=== PATIENT | female | born 1955 | race Caucasian/White ===

== ENCOUNTER → 2018-05-24 14:15 | Outpatient (REF) | payer OTHER, SELFPAY ==
[2018-05-24 15:46] LABS: Cholesterol 181 mg/dL (50-200); HDL Cholesterol 73 mg/dL (40-60); Triglyceride 55 mg/dL (30-150)
[2018-05-24 15:50] LABS: COMMENT (LAB VIEW ONLY) 73.22 mg/dL; Microalb ug/mg Crea 15.2 ug/mg Cr
[2018-05-24 15:58] LABS: LDL CHOLESTEROL 96 mg/dL (<100)
== END ==
LOC: LBN 14:15
PROVIDERS: PCP Family Medicine; Visit Provider Family Medicine
DX: E11.9 Type 2 diabetes mellitus without complications (principal)
CPT/HCPCS: 80061; 83721; 82043; 82570

== ENCOUNTER → 2018-05-26 10:43 | Outpatient (REF) | payer OTHER, SELFPAY ==
--- NOTE | 2018-05-26 10:00 | PAPFT_PTH ---
PATIENT: Sharon Llamas LOC: [facility] U#:[id number] AGE/SX: 70/F ROOM: RE05/26/[address]: Roslyn Badillo MD : 1955 BED: DIS: SPEC #: [id number] RECD: 05/26/18 13:04 STATUS: JUAN REAure #: [id number] MERVAT: 05/26/18 10:[address]: Roslyn Badillo DEPT: [facility] Cytology RECD BY: Yas Irvin Tissues: 1 - CX/ENDOCX FOR PAP SMEARS Procedures: PAP THIN PREP/UVM Screening HPV DNA PROBE Comments: [id number]
== END ==
LOC: LBN 10:43
PROVIDERS: PCP Family Medicine; Visit Provider Family Medicine
DX: Z12.4 Encounter for screening for malignant neoplasm of cervix (principal); Z11.51 Encounter for screening for human papillomavirus (HPV)
CPT/HCPCS: 88142; 87624

== ENCOUNTER 2018-07-24 17:31 | Emergency (ER) | payer OTHER, SELFPAY ==
[2018-07-24] VITALS (34 sets, daily range): BP systolic 117–179; BP diastolic 60–75; PULSE 72–92; RESP 11–27; TEMP 37.7; O2SAT 92–100
[2018-07-24] MEDS: Normal Saline 1,000 ML 1000 ML IV ×2 (17:45→19:15)
[2018-07-24] MEDS: Ondansetron 4 MG/2 ML VIAL IVP (18:00)
[2018-07-24 18:03] LABS: Abs Immature Grans 0.01 k/cumm (0.0-0.09); Absolute Basophil Count 0.02 k/cumm (0.0-0.2); Absolute Eosinophil Count 0.13 k/cumm (0.0-0.7); Absolute Lymphocyte Count 1.54 k/cumm (1.2-3.4); Absolute Monocyte Count 0.73 k/cumm (0.11-0.7); Absolute Neutrophil Count 6.52 k/cumm (1.2-6.7); Basophils % 0.2; Eosinophils % 1.5; HCT 40.7 % (36.0-46.0); HGB 13.6 g/dL (12.0-15.5); Immature Grans % 0.1; Lymphocytes % 17.2; Mean Corp. HGB Concentration 33.4 g/dL (32.0-36.0); Mean Corpuscular Hemoglobin 31.6 pg (27.0-33.0); Mean Corpuscular Volume 94.4 fL (80-95); Mean Platelet Volume 10.4 fL (8.0-11.0); Monocytes % 8.2; Neutrophils % 72.8; Platelet Count 272 x1000/uL (130-400); RBC 4.31 m/cumm (4.00-5.20); RBC Distribution Width 12.5 % (11.7-14.6); White Blood Cell Count 8.95 k/cumm (4.4-10.8)
[2018-07-24 18:18] LABS: ALT 24 U/L (12-78); AST 24 U/L (15-37); Albumin 3.8 g/dL (3.4-5.0); Alkaline Phosphatase 83 U/L (46-116); Anion Gap 11.6 mmol/L (3-11); BUN 10 mg/dL (7-18); Bilirubin, Total 0.2 mg/dL (0.2-1.0); CO2 28.4 mmol/L (21.0-32.0); CREATININE 0.76 mg/dL (0.55-1.02); Calcium 9.6 mg/dL (8.5-10.1); Chloride 103 mmol/L (98-107); Glucose 75 mg/dL (70-100); Sodium 143 mmol/L (136-145); Total Protein 7.6 g/dL (6.4-8.2); Troponin I 0.02 ng/mL (0.00-0.06)
[2018-07-24 18:24] LABS: Potassium 2.7 mmol/L (3.5-5.1)
--- NOTE | 2018-07-24 19:05 | ED.GENADUL_ITS ---
Discharge Plan Disposition Patient Disposition: HOME Condition: Good Discharge Details Chief Complaint: Diabetes Clinical Impression: Acute dehydration, Hypoglycemia, Acute hypokalemia Primary Care Provider: Roslyn Badillo ED Provider: Mikey Baker Home Meds and New Rx's Prescriptions: New potassium chloride 20 mEq tablet,ER particles/crystals 20 meq PO DAILY Qty: 7 RF: 0 ondansetron [Zofran ODT] 4 MG tablet,disintegrating 4 mg PO Q6H 1 Days Qty: 4 RF: 0 No Action aspirin 81 MG tablet,delayed release (DR/EC) 1 tab PO DAILY RF: 0 CALCIUM 600 + D TABLET 1 EACH tablet 1 tab PO RF: 0 blood sugar diagnostic [Blood Glucose Test] 1 EACH strip 1 ea Miscellaneous AC & HS Qty: 400 RF: 4 lisinopril [Zestril] 10 MG tablet 1 tab PO DAILY Qty: 90 RF: 4 insulin aspart U-100 [Novolog PenFill U-100 Insulin] 100 UNIT/1 ML cartridge 1 unit SQ as directed Qty: 6 RF: 6 pravastatin 40 MG tablet 40 mg PO DAILY Qty: 90 RF: 4 fluconazole 150 MG tablet 150 mg PO ONCE Qty: 4 RF: 2 ibuprofen 600 MG tablet 600 mg PO TID PRNRF: 0 Discharge Instructions Instructions: Dehydration (ED), Hypokalemia (ED) Additional Instructions: Please check your insulin levels every hour. If you notice any low sugar levels please start eating sugary foods. Please take the Zofran and potassium as directed and needed. Please drink 8-10 cups of water per day. If you notice any worsening of your symptoms, or any new symptoms such as vomiting, diarrhea, fever, chills, shortness of breath, chest pain, numbness, weakness, or fainting , please return immediately to the emergency department for reevaluation. Please follow up with your primary care provider as soon as possible for reassessment and reevaluation. As always, it was a pleasure participating in your medical care today. Referrals: Roslyn Badillo MD [Primary Care Provider] - Medical Decision Making This is a pleasant 63-year-old female with a past medical history of type 1 diabetes on an insulin pump who presents for nausea, 2 episodes of vomiting, dizziness and near syncope. Patient has a history of running low on her sugar and having episodes of vomiting and near syncope in the past. Today though he was complicated with being unable to bring up her blood sugars secondary to the vomiting. On initial exam the patient demonstrated no focal neurologic deficits, she did appear to have dry mucous membranes. No other significant abnormalities. Patient was given Zofran and her nausea completely improved, she is able to tolerate p.o. well after this. She was rehydrated with a liter of normal saline and felt extremely better after this. Laboratory workup demonstrates no significant CBC abnormalities, however her chemistries did demonstrate a potassium of 2.7. Patient was given oral and IV potassium as well as oral magnesium. Troponin was negative, EKG was benign. Patient is feeling much better and is actively asking to go home. I feel this is very reasonable. Patient's symptoms may have been a combination of mild hypoglycemia with associated vomiting secondary to either something she ate or secondary to her hypoglycemia. At this point with the patient feeling much better, a benign workup aside for the hypokalemia which has been corrected, and no other significant abnormalities I feel she can be safely discharged home with close follow-up. We discussed red flags which to return, the importance of switching her insulin monitor to a more accurate measurement device, and utilizing regular Accu-Chek strips in the meantime until she can get a new insulin pump associated monitoring device. We will give the patient a prescription for potassium for home use. Discussed red flags which to return, the importance of close PCP follow-up. I have extensively reviewed the treatment plan and discharge instructions with the patient and their family. I have addressed all patient concerns at this time. The patient and family was made aware of what symptoms to monitor for that would warrant a return to the emergency department. Discussed the plan with the patient and family, they demonstrate verbal understanding and agreement with our assessment and plan at this time. EKG 18: 09 Rate 81, intervals normal, normal sinus rhythm. No ST depression or elevation. No Q waves. Inverted T wave noted in aVF, and lead III, small Q wave in lead III. Nonspecific ST abnormality secondary to artifact noted in lead 3. These findings are present on prior EKG from 03/01. HPI General Date/Time Provider Initiated Documentation: 07/24/18 17:32 . HPI Narrative: This is a 63-year-old female with a past medical history of high cholesterol, type 1 diabetes on an insulin pump, and hypertension with a past surgical history of C-sections, who presents today for evaluation of nausea, 1-2 episodes of vomiting, and near syncope. The patient states that she and her went to stay because 89 at [place] where she had a salad, shortly thereafter she got slightly dizzy, had 1-2 episodes of vomiting, and then had a near syncopal episode. The patient states that she recalls the event, but her thinks she might of passed out very briefly. She did not fall or hit her head. She had no trauma. After this event she went and checked her glucose and she was less than 70. She tried taking food to bring her glucose up but because of the nausea and vomiting she was unable to keep it down and so she came here for further evaluation. Patient denies any chest pain, headache, neck pain or shoulder pain. She denies any vision changes, pleuritic chest pain, or other complaints. She has had episodes like this in the past, they are usually secondary to low blood sugar. She states she often runs very low. Patient denies any other insulin medications, she only utilizes her pump. She does note that she used a new patch for checking her glucose, she is noted that this is been running slightly often compared to normal and compared to her own fingersticks. She denies any other complaints at this time. She denies any other modifying factors Related Data Home Medications Medication Instructions Recorded Confirmed Calcium 600 + D Tablet 1 tab PO 02/03/13 03/07/14 aspirin 1 tab PO DAILY tab-cap 02/03/13 07/24/18 ibuprofen 600 mg PO TID PRN 03/07/14 07/24/18 blood sugar diagnostic [Blood #400 strip 05/25/17 Glucose Test] insulin aspart U-100 [Novolog] 1 unit SQ as directed #6 box 04/11/18 07/24/18 lisinopril [Zestril] 1 tab PO DAILY #90 tab-cap 04/11/18 07/24/18 fluconazole 150 mg PO ONCE #4 tab-cap 05/26/18 07/24/18 pravastatin 40 mg PO DAILY #90 tab-cap 05/26/18 07/24/18 ondansetron [Zofran Odt] 4 mg PO Q6H 1 Days #4 tab 07/24/18 potassium chloride 20 meq PO DAILY #7 tab 07/24/18 Previous Rx's Medication Instructions Recorded insulin aspart U-100 [Novolog] 1 unit SQ as directed #6 box 04/11/18 lisinopril [Zestril] 1 tab PO DAILY #90 tab-cap 04/11/18 fluconazole 150 mg PO ONCE #4 tab-cap 05/26/18 pravastatin 40 mg PO DAILY #90 tab-cap 05/26/18 ondansetron [Zofran Odt] 4 mg PO Q6H 1 Days #4 tab 07/24/18 potassium chloride 20 meq PO DAILY #7 tab 07/24/18 Allergies Allergy/AdvReac Type Severity Reaction Status Date / Time Sulfa (Sulfonamide Allergy Mild HIVES Unverified 07/24/18 17:58 Antibiotics) General Stated Complaint: Diabetes WICHO: 3 Review of Systems Review of Systems All systems reviewed & are unremarkable except as noted in HPI and below PFSH Family History Mother No problems noted. Father Neoplasm Sister No problems noted. Brother No problems noted. Grandfather No problems noted. Grandmother Neoplasm Sister Neoplasm Brother Diabetes Son No problems noted. Daughter No problems noted. Daughter No problems noted. Other Heart disease Medical History Diabetes mellitus Hypertension Social History Smoking/Tobacco Use Status: Never Surgical History section Ligation of fallopian tube Exam Narrative Exam Narrative: 1.Const: Well-nourished, Well-developed, appearing stated age 2.Eyes: PERRL, no conjunctival injection, and symmetrical lids. 3.ENT: Atraumatic external nose and ears. Dry MM. Neck: Symmetric, trachea midline, No thyromegaly. Cerebellar function testing is normal. The patient demonstrates a normal hints exam with no findings concerning for a central event. No vertical nystagmus. The head impulse test is negative for any significant central abnormality. Normal test of skew. No suggestion of a central cerebellar event. 4.CVS: +S1/S2, No murmurs or gallops. Peripheral pulses 2+ and equal in all extremities. Brisk capillary refill in all extremities. 5.RESP: Unlabored respiratory effort. Clear to auscultation bilaterally. No wheezes rales or rhonchi 6.GI: Soft, Nontender/Nondistended, No hepatosplenomegaly. No guarding or rebound. 7.MSK: Normocephalic/Atraumatic, Extremities w/o deformity or ttp No cyanosis or clubbing, Normal movement of all extremities 8.Skin: Warm, Dry. No rashes or lesions. 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 Sensation grossly intact, no focal neurologic deficits. All 6 cardinal planes of vision are fully intact. No evidence of rotatory or vertical nystagmus. The patient demonstrated a normal xvzhal-[id number], good dexterity. There was no evidence of dysdiadochokinesia. Patient was able to ambulate without difficulty. There was no wide-based gait. Romberg, and rgus-sm-mjid are both normal on testing. Sensation was intact bilaterally as well as muscle strength bilaterally for all extremities. Patient was able to verbalize butter cup with no slurring, or miss pronunciation. 10.Psych: (AAO) x3. Appropriate mood and affect Course Vital Signs Temperature 37.7 C H 07/24/18 17:46 Pulse 79 07/24/18 17:46 Respiratory Rate 17 07/24/18 17:46 Blood Pressure 179/60 H 07/24/18 17:46 Pulse Oximetry 100 07/24/18 17:46 Temperature 37.7 C H 07/24/18 17:46 Temperature Source Skin 07/24/18 17:46 Pulse 79 07/24/18 17:46 Respiratory Rate 17 07/24/18 17:46 Respiratory Effort Non-Labored 07/24/18 17:46 Blood Pressure 179/60 H 07/24/18 17:46 Blood Pressure Position Supine 07/24/18 17:46 Pulse Oximetry 100 07/24/18 17:46 Oxygen Delivery Method Room Air 07/24/18 17:46 Oxygen Flow Rate 0 07/24/18 17:46 Pain Level 0 07/24/18 17:46 Lab/Test Results Lab/Test Results: Laboratory Tests Range/Units 07/24/18 07/24/18 17:45 17:45 WBC (4.4-10.8) k/cumm 8.95 RBC (4.00-5.20) m/cumm 4.31 Hgb (12.0-15.5) g/dL 13.6 Hct (36.0-46.0) % 40.7 MCV (80-95) fL 94.4 MCH (27.0-33.0) pg 31.6 MCHC (32.0-36.0) g/dL 33.4 RDW (11.7-14.6) % 12.5 Plt Count (130-400) x1000/uL 272 MPV (8.0-11.0) fL 10.4 Immature Gran % 0.1 Neutrophils % 72.8 Lymphocytes % 17.2 Monocytes % 8.2 Eosinophils % 1.5 Basophils % 0.2 Absolute Neutrophils (1.2-6.7) k/cumm 6.52 Absolute Lymphocytes (1.2-3.4) k/cumm 1.54 Absolute Monocytes (0.11-0.7) k/cumm 0.73 H Absolute Eosinophils (0.0-0.7) k/cumm 0.13 Absolute Basophils (0.0-0.2) k/cumm 0.02 Sodium (136-145) mmol/L 143 Potassium (3.5-5.1) mmol/L 2.7 L* Chloride (98-107) mmol/L 103 Carbon Dioxide (21.0-32.0) mmol/L 28.4 Anion Gap (3-11) mmol/L 11.6 H BUN (7-18) mg/dL 10 Creatinine (0.55-1.02) mg/dL 0.76 Estimated GFR/1.73 m2 (mL/min/1.73m2) >= 60.00 Glucose (70-100) mg/dL 75 Calcium (8.5-10.1) mg/dL 9.6 Total Bilirubin (0.2-1.0) mg/dL 0.2 AST (15-37) U/L 24 ALT (12-78) U/L 24 Alkaline Phosphatase (46-116) U/L 83 Troponin I (0.00-0.06) ng/mL 0.02 Total Protein (6.4-8.2) g/dL 7.6 Albumin (3.4-5.0) g/dL 3.8
[2018-07-24] MEDS: Magnesium Oxide 400 MG TAB 800 MG PO (19:13)
[2018-07-24] MEDS: POTASSIUM CHLORIDE 20 MEQ/100 ML BAG 50 MEQ IVPB (19:14)
[2018-07-24] MEDS: Potassium Chloride 20 MEQ TABCR 40 MEQ PO (19:14)
== END 2018-07-24 21:22 | disposition home or self-care (01) ==
PROVIDERS: Emergency Provider Student in an Organized Health Care Education/Training Program; PCP Family Medicine
DX: E11.649 Type 2 diabetes mellitus with hypoglycemia without coma (principal); E86.0 Dehydration; E87.6 Hypokalemia; Z79.4 Long term (current) use of insulin
CPT/HCPCS: 36415; 36416; 80053; 82962; 93005; 96361; 96365; 96375; 84484; 85025; 93010; J3480

== ENCOUNTER 2018-08-01 08:20 | Outpatient (CLI) | payer OTHER, SELFPAY ==
[2018-08-01 12:46] LABS: ALT 25 U/L (12-78); AST 22 U/L (15-37); Albumin 3.6 g/dL (3.4-5.0); Alkaline Phosphatase 81 U/L (46-116); Anion Gap 7.3 mmol/L (3-11); BUN 12 mg/dL (7-18); Bilirubin, Total 0.4 mg/dL (0.2-1.0); CO2 29.7 mmol/L (21.0-32.0); CREATININE 0.78 mg/dL (0.55-1.02); Calcium 9.6 mg/dL (8.5-10.1); Chloride 102 mmol/L (98-107); Glucose 149 mg/dL (70-100); Magnesium 1.9 mg/dL (1.8-2.4); Potassium 4.3 mmol/L (3.5-5.1); Sodium 139 mmol/L (136-145)
== END 2018-08-01 08:40 ==
PROVIDERS: PCP Family Medicine; Visit Provider Family Medicine
DX: E11.9 Type 2 diabetes mellitus without complications (principal); Z79.4 Long term (current) use of insulin; I10 Essential (primary) hypertension; E83.42 Hypomagnesemia
CPT/HCPCS: 36415; 80053; 83735

== ENCOUNTER 2018-08-10 14:59 | Outpatient (CLI) | payer OTHER, SELFPAY ==
[2018-08-10 16:28] LABS: Bilirubin Negative (Negative); Blood Negative (Negative); Clarity Clear; Glucose Negative (Negative); Ketones Negative (Negative); Leukocyte Esterase Negative (Negative); Nitrite Negative (Negative); Urobilinogen 0.2 EU/dL (Up TO 0.2); pH 7.5 (5-8)
[2018-08-10 19:25] LABS: ALT 39 U/L (12-78); AST 82 U/L (15-37); Albumin 3.7 g/dL (3.4-5.0); Alkaline Phosphatase 84 U/L (46-116); Anion Gap 7.4 mmol/L (3-11); BUN 16 mg/dL (7-18); Bilirubin, Total 0.3 mg/dL (0.2-1.0); CO2 30.6 mmol/L (21.0-32.0); CREATININE 0.82 mg/dL (0.55-1.02); Calcium 9.6 mg/dL (8.5-10.1); Chloride 102 mmol/L (98-107); Glucose 155 mg/dL (70-100); Potassium 4.7 mmol/L (3.5-5.1); Sodium 140 mmol/L (136-145); Total Protein 6.9 g/dL (6.4-8.2)
[2018-08-10 22:00] LABS: Hemoglobin A1C 6.8 % (4.5-6.2)
== END 2018-08-10 15:19 ==
PROVIDERS: PCP Family Medicine; Visit Provider Family Medicine
DX: E11.9 Type 2 diabetes mellitus without complications (principal)
CPT/HCPCS: 80053; 81003; 83036

== ENCOUNTER 2018-09-06 13:06 | Outpatient (REF) | payer OTHER, SELFPAY ==
[2018-09-06 13:44] LABS: ALT 23 U/L (12-78); AST 21 U/L (15-37); Albumin 3.9 g/dL (3.4-5.0); Alkaline Phosphatase 80 U/L (46-116); Bilirubin, Direct 0.11 mg/dL (0.00-0.20); Bilirubin, Total 0.4 mg/dL (0.2-1.0); Total Protein 7.1 g/dL (6.4-8.2)
== END 2018-09-06 13:26 ==
LOC: LBN 13:06
PROVIDERS: PCP Family Medicine; Visit Provider Family Medicine
DX: R74.0 Nonspecific elevation of levels of transaminase and lactic acid dehydrogenase [LDH] (principal)
CPT/HCPCS: 80076

== ENCOUNTER 2019-02-14 15:04 | Outpatient (REF) | payer OTHER, SELFPAY ==
[2019-02-14 16:24] LABS: ALT 29 U/L (12-78); AST 22 U/L (15-37); Albumin 4.4 g/dL (3.4-5.0); Alkaline Phosphatase 83 U/L (46-116); Anion Gap 7.7 mmol/L (3-11); BUN 12 mg/dL (7-18); Bilirubin, Total 0.4 mg/dL (0.2-1.0); CO2 30.3 mmol/L (21.0-32.0); CREATININE 0.79 mg/dL (0.55-1.02); Calcium 10.1 mg/dL (8.5-10.1); Chloride 101 mmol/L (98-107); Glucose 150 mg/dL (70-100); Potassium 4.5 mmol/L (3.5-5.1); Sodium 139 mmol/L (136-145); Total Protein 7.5 g/dL (6.4-8.2)
== END 2019-02-14 15:24 ==
LOC: LBN 15:04
PROVIDERS: PCP Family Medicine; Visit Provider Family Medicine
DX: E10.9 Type 1 diabetes mellitus without complications (principal)
CPT/HCPCS: 80053

== ENCOUNTER 2019-08-02 00:59 | Outpatient (CLI) | payer OTHER, SELFPAY ==
--- NOTE | 2019-08-02 12:17 | DI.MAMMO_ITS ---
EXAM: MG MAMMO SCREENING CLINICAL HISTORY: Screening, Z12.31 TECHNIQUE: Bilateral full field digital CC and MLO mammographic images were obtained with 3D tomosyn thesis and utilizing computer aided detection (CAD). COMPARISON: Available for comparison. FINDINGS: Masses/Architectural Distortion: There is an area of asymmetric breast tissue in the outer left breas t seen on the craniocaudad view. This area is more prominent compared to the prior examinations. Fu rther evaluation with spot compression view and a left breast ultrasound are requested. Microcalcifications: No suspicious pleomorphic-type are seen. Skin Thickening/Nipple Retraction: None. IMPRESSION: 1. Additional views of the left breast as described above. BI-RADS Cat 0 - Assessment Incomplete: Need additional imaging evaluation Breast Density - Category B - Scattered areas of fibroglandular density A negative radiographic report should not delay biopsy if a dominant or clinically suspicious mass is present. Up to ten percent of cancers are not identified on mammography. A negative report may reinforce clinical impression. Adenosis and dense breasts may obscure an underlying neoplasm. False positive reports average 6 to 10%.
== END 2019-08-02 01:19 ==
PROVIDERS: PCP Family Medicine; Visit Provider Family Medicine
DX: R92.8 Other abnormal and inconclusive findings on diagnostic imaging of breast
CPT/HCPCS: 77063; 77067

== ENCOUNTER 2019-08-09 02:04 | Outpatient (CLI) | payer OTHER, SELFPAY ==
--- NOTE | 2019-08-09 09:00 | DI.US_ITS ---
EXAM: US BREAST LT LIMITED AND LT BREAST CALL BACK VIEWS CLINICAL HISTORY: F/U MAMMO AND SPOTS, ASYMMETRIC BREAST TISSUE OUTER LT BREAST TECHNIQUE: Additional images are interpreted according to the usual protocol including tomosynthesis and 2D imaging. Ultrasound performed using standard protocol. COMPARISON: LEFT BREAST ULTRASOUND from 02/12/2012 FINDINGS: Additional mammographic views of the left breast and left breast ultrasound are interpreted in conjun ction. These examinations were obtained to evaluate an area of questionable asymmetric density or ar chitectural distortion seen in the lateral retroareolar portion of the left breast on recent mammogra m, most notably on CC view. Additional mammographic views including CC and MLO spot compression view s and CC rolled views show persistent asymmetric density and/or architectural distortion at this site with no convincing mass. Breast ultrasound shows a questionable area of masslike appearance measuring about 15 x 8 millimeters in diameter with heterogeneous architecture located in the 3 o'clock position approximately 1 cm fro m the nipple, this may correspond to the mammographically identified findings but is not a clear-cut mass. No Doppler abnormality identified in this area. Biopsy is recommended on the basis of the mammographic findings. Although ultrasound guided biopsy c ould be performed, the lack of certainty regarding the ultrasonographic findings would probably make stereotactic biopsy more definitive in evaluating this mammographic abnormality. Category 4. Breast density, category B. BI-RADS Cat 4 - Suspicious Abnormality: Biopsy should be considered. Breast Density - Category B - Scattered areas of fibroglandular density.
== END 2019-08-09 02:24 ==
PROVIDERS: PCP Family Medicine; Visit Provider Family Medicine
DX: Z12.31 Encounter for screening mammogram for malignant neoplasm of breast (principal); R92.8 Other abnormal and inconclusive findings on diagnostic imaging of breast; N63.21 Unspecified lump in the left breast, upper outer quadrant
CPT/HCPCS: 76642; 77063; 77067

== ENCOUNTER 2019-11-02 01:24 | Outpatient (CLI) | payer OTHER, SELFPAY ==
--- NOTE | 2019-11-02 13:30 | DI.DEXA_ITS ---
EXAM: XR DEXA BONE DENSITY W/WO MICHAEL CLINICAL HISTORY: STARTING ARIMIDEX: DEXA SCAN REQUIRED, SCREENING FOR OSTEOPOROSIS Z13.820 TECHNIQUE: DEXA scan was performed according to the usual protocol. COMPARISON: No exams were available for comparison FINDINGS: Findings for right hip scanning are T-score of -2.0 with right femoral neck T-score of -2.3. Findings for lumbar spine scanning are T-score of -0.8. Prior examination of 2005 showed lumbar spin e T-score of -0.8, as well. Left forearm scanning shows T-score of -2.3. IMPRESSION: Findings consistent with osteopenia according to the WHO criteria. Lateral vertebral scanogram shows no evidence of a vertebral compression fracture.
== END 2019-11-02 01:44 ==
PROVIDERS: PCP Family Medicine; Visit Provider Family Medicine
DX: M85.88 Other specified disorders of bone density and structure, other site (principal)
CPT/HCPCS: 77080

== ENCOUNTER 2019-12-12 08:42 | Outpatient (REF) | payer OTHER, SELFPAY ==
[2019-12-12 12:33] LABS: Anion Gap 6.2 mmol/L (3-11); BUN 14 mg/dL (7-18); CO2 30.8 mmol/L (21.0-32.0); CREATININE 0.77 mg/dL (0.55-1.02); Calcium 9.2 mg/dL (8.5-10.1); Calculated LDL 74 mg/dL (<100); Chloride 103 mmol/L (98-107); Cholesterol 145 mg/dL (<200); Glucose 166 mg/dL (74-106); HDL Cholesterol 55 mg/dL (40-60); Hemoglobin A1C 7.3 % (3.8-5.6); Potassium 4.5 mmol/L (3.5-5.1); Sodium 140 mmol/L (136-145); Triglyceride 82 mg/dL (<150)
[2019-12-12 13:06] LABS: COMMENT (LAB VIEW ONLY) 40.95 mg/dL; Microalb ug/mg Crea 98.4 ug/mg Cr
== END 2019-12-12 09:02 ==
LOC: LBO 08:42
PROVIDERS: PCP Family Medicine; Visit Provider Nurse Practitioner
DX: E10.9 Type 1 diabetes mellitus without complications (principal)
CPT/HCPCS: 80048; 80061; 82043; 82570; 83036

== ENCOUNTER 2020-02-02 09:55 | Outpatient (REF) | payer OTHER, SELFPAY ==
[2020-02-03 11:05] LABS: Campylobacter PCR Negative (Negative); Salmonella PCR Negative (Negative); Shiga Toxin PCR Negative (Negative); Shigella/Enteroinvasive Ecoli Negative (Negative)
== END 2020-02-02 10:15 ==
LOC: LBN 09:55
PROVIDERS: PCP Family Medicine; Visit Provider Family Medicine
DX: R19.7 Diarrhea, unspecified (principal)
CPT/HCPCS: 87505; 87324; 87798

== ENCOUNTER 2020-09-17 02:35 | Outpatient (CLI) | payer OTHER, SELFPAY ==
[2020-09-19 21:27] LABS: COVID-19 RT-PCR Result NEGATIVE (Negative)
== END 2020-09-17 02:55 ==
PROVIDERS: PCP Family Medicine; Visit Provider Surgery
DX: Z11.59 Encounter for screening for other viral diseases (principal); Z01.818 Encounter for other preprocedural examination
CPT/HCPCS: U0003

== ENCOUNTER 2020-09-20 06:23 | Day surgery (SDC) | payer OTHER, SELFPAY ==
[2020-09-20 06:39] VITALS: BP 119/68; PULSE 73; RESP 16; TEMP 36.4; O2SAT 96
[2020-09-20] MEDS: Lactated Ringers 1,000 ML 80 ML IV (07:00)
--- NOTE | 2020-09-20 07:19 | W.PM.DSUDISC ---
Discharge Plan Disposition Patient Disposition: HOME Condition: Good Discharge Details Reason For Visit: Colonoscopy Attending Provider: Aliza Tracey Primary Care Provider: Roslyn Badillo Home Meds and New Rx's Prescriptions: Continued (DME) pen needle, diabetic [BD Ultra-Fine Micro Pen Needle] 32 gauge x 1/4 needle See Dose Instructions .ROUTE .MEDSUPPLY Qty: 100 RF: 4 aspirin 81 mg tablet,delayed release (DR/EC) 81 mg PO DAILY Qty: 90 RF: 4 semaglutide 14 mg tablet 14 mg PO DAILY Qty: 90 RF: 4 tamoxifen 20 mg tablet 20 mg PO DAILY Qty: 90 RF: 4 lisinopril 5 mg tablet 5 mg PO DAILY Qty: 90 RF: 4 pravastatin 40 mg tablet 40 mg PO DAILY Qty: 90 RF: 4 (DME) Blood Glucose Test Strip 1 ea Miscellaneous AC & HS Qty: 300 RF: 3 insulin aspart U-100 [Novolog PenFill U-100 Insulin] 100 unit/mL cartridge 1 unit subcut as directed Qty: 6 RF: 6 (DME) FreeStyle Linnea 14 Day Sensor Kit See Rx Instructions .ROUTE .MEDSUPPLY Qty: 1 RF: 6 ibuprofen 600 MG tablet 600 mg PO TID PRNRF: 0 Discharge Instructions Additional Instructions: Findings: Your colonoscopy looked normal. Random biopsies were performed. My office will contact you with results. Follow up: Plan for routine screening colonoscopy in 10 years or sooner if symptoms arise. Please call if you develop: fevers >101.5 Nausea or Vomiting Abdominal pain that is not transient DAY SURGERY UNIT POST COLONOSCOPY INSTRUCTIONS 1. Because there will be medication in your system for the next 24 hours, you may feel a little sleepy. Your coordination will be affected. Therefore: a. Do not drive or operate dangerous equipment for 24 hours. b. Do not drink alcohol beverages for 24 hours (not even beer). c. Plan to go home and rest for the day. 2. Generally there are no restrictions on your activity after a day or so has gone by, but you may feel a bit fatigued for a few days. 3 After you arrive home you may have a light meal and return to a normal diet as you can tolerate it without feeling sick to your stomach. 4. After surgery, you may feel pain or discomfort. This should be only transient, but if it persists please contact your doctor. 5. If there are any questions regarding the findings of your procedure, please feel free to contact your doctor. 6. If you are unable to contact your doctor with a problem, contact the hospital at [phone]. 7. Continue all your regular medications unless directed otherwise. I understand the above instructions and have no questions. Signature of Patient or Responsible Adult Escort Date/Time Name of Responsible Adult Escort Signature of Nurse Date/Time Activity:: Activity as Tolerated Diet:: As Tolerated Discharge Orders Discharge Orders: Discharge Order (Routine); Ordered 09/20/20 Ordered By: Aliza Tracey DS: Diagnosis Discharge Diagnosis (1) Normal colonoscopy: Status: Acute
--- NOTE | 2020-09-20 07:20 | W.COLOREPORT ---
Date of service: 09/20/20 Time of Service: 08:06 Colonoscopy Report Date of procedure: 09/20/20 Pre-op diagnosis general: Change in bowel habits Post-op diagnosis procedure note: other (Normal colon) Procedure: Colonoscopy with random biopsies Surgeon: Aliza Tracey Anesthesia proc note operative: MAC Indications: This 65 year old woman presents for evaluation of numerous loose stools and occasional fecal incontinence. Prior colonoscopy in 2013 showed a hyperplastic polyp. No FH colon cancer or IBD. Procedure Description: The patient was placed in the left Ambrose position. Propofol was titrated to sedation. Digital rectal examination revealed no abnormalities. The scope was advanced to the cecum without difficulty. The ileocecal valve and appendiceal orifice were clearly identified. The prep was good. This distal ileum was intubated and appeared normal. Routine biopsies were done here. The scope was slowly withdrawn over the course of greater than 6 minutes with no abnormalities seen in the ascending, transverse, descending, sigmoid colon or rectum including on retroflexed view. Random biopsies were taken throughout the colon and sent in the same specimen container. The patient tolerated the procedure well and was stable to recovery. Plan for routine screening colonoscopy in 10 years or sooner if symptoms indicate.
--- NOTE | 2020-09-20 07:43 | BOWEL_PTH ---
PATIENT: Sharon Llamas LOC: [facility] U#:[id number] AGE/SX: 65/F ROOM: RE09/20/[address]: Aliza Tracey MD : 1955 BED: DIS: 09/20/2020 SPEC #: [id number] RECD: 09/20/20 12:53 STATUS: JUAN REQ #: [id number] MERVAT: 09/20/20 07:[address]: Aliza Tracey DEPT: Surgical Specimen RECD BY: Yas Irvin ENTERED: 09/20/20 12:54 SP TYPE: Bowel OTHR DR: Roslyn Badillo MD Tissues: 1 - BIOPSY BOWEL 2 - BIOPSY BOWEL Procedures: GROSS AND MICRO LEVEL 4 Comments: [id number]
[2020-09-20 08:33] VITALS: BP 136/51; PULSE 67; RESP 18; TEMP 36.4; O2SAT 100
== END 2020-09-20 08:57 | disposition home or self-care (01) ==
PROVIDERS: PCP Family Medicine; Visit Provider Surgery
PROC: 0DJD8ZZ Inspection of Lower Intestinal Tract, Via Natural or Artificial Opening Endoscopic (ICD-10-PCS; CPT 45378; principal; 2020-09-20 07:30)
DX: R19.4 Change in bowel habit (principal); K52.831 Collagenous colitis
CPT/HCPCS: 45380; 88305; J2001

== ENCOUNTER 2021-02-14 06:47 | Day surgery (SDC) | payer OTHER, SELFPAY ==
[2021-02-14 07:22] VITALS: BP 113/59; PULSE 65; RESP 16; TEMP 36.3; O2SAT 98
--- NOTE | 2021-02-14 07:33 | W.ANESPRE ---
General Info Date of Service Date Performed: 02/14/21 Height: 5 ft 2 in Weight: 64.2 kg Body Mass Index (BMI): 25.9 Surgical Procedure: Operation Date: 02/14/21 08:40 Proposed Procedures Side Surgeon p Cataract Extraction with IOL Implant Right Jed Nelson MD Meds Allergies and Home Medications Allergies Allergy/AdvReac Type Severity Reaction Status Date / Time Sulfa (Sulfonamide Allergy Mild HIVES Verified 02/14/21 07:20 Antibiotics) Home Medication Medication Instructions Recorded aspirin 81 mg tablet,delayed 81 mg PO DAILY #90 tab-cap 02/13/19 release pen needle, diabetic 32 gauge x #100 each 02/13/19 1/4 tamoxifen 20 mg tablet 20 mg PO DAILY #90 tab 01/18/20 blood sugar diagnostic #300 strip 04/01/20 insulin aspart U-100 100 unit/mL 1 unit SUBCUT as directed #6 box 04/01/20 subcutaneous cartridge lisinopril 5 mg tablet 5 mg PO DAILY #90 tab 04/01/20 pravastatin 40 mg tablet 40 mg PO DAILY #90 tab-cap 04/01/20 blood sugar diagnostic #100 ea 10/30/20 flash glucose sensor #1 ea 11/20/20 Current Visit Medications: Current Medications Generic Name Dose Route Start Last Admin Trade Name Freq PRN Reason Stop Dose Admin Acetaminophen 1,000 mg 02/14/21 06:00 Acetaminophen 500 Mg Tab PO Q4H PRN PRN Miscellaneous Medication 0 ml 02/14/21 06:00 Prednisolone 1%, Moxifloxacin 0.5%, Nepafenac 0.1% 5ml Btl OD DIRECTED [facility] Miscellaneous Medication 0 ml 02/14/21 06:00 02/14/21 07:30 Tropicam./Phenyleph. (1/2.5%) 10 Ml Btl OD 1 drp DIRECTED SHAKIRA Administration Tetracaine HCl 0 ml 02/14/21 06:00 Tetracaine 0.5% 4 Ml Btl OD DIRECTED [facility] PFSH Active Problems Active Problems: Problem Status Onset Code Collagenous colitis K52.831 Anosmia 04/04/15 R43.0 Essential hypertension 07/24/13 I10 Hyperplastic polyp of intestine 02/05/14 K63.5 Diabetes type I ~02/2013 E10.9 Trauma of toe of right foot S99.921A Osteopenia M85.80 Breast cancer, left breast C50.912 Hyperlipidemia 02/05/14 E78.5 Medical History Medical History Breast cancer, left breast [facility] [place] 08/2019 - invasive lobular carcinoma-neg.nodes/neg.metastasis bilat.mastectomy:09/2019 - No chemo-no ROR on Tamoxifen Collagenous colitis dx colonoscopy 09/2020 Diabetes mellitus Hyperlipidemia (02/05/14) Hypertension Osteopenia Surgical History Surgical History section Hx of colonoscopy Ligation of fallopian tube S/P bilateral mastectomy Tobacco Smoking/Tobacco Use Status: Never Passive smoking exposure: No Second hand exposure: No Alcohol Alcohol Intake: current Alcohol intake frequency: holidays/special occasions only Substance Use Substance use: Never Substance use type: does not use Vital Signs and Lab Results Vital Signs Most Recent Vital Signs in EMR: Most Recent Vital Signs Temp Pulse Resp BP Pulse Ox 36.3 C L 65 16 113/59 L 98 02/14/21 07:22 02/14/21 07:22 02/14/21 07:22 02/14/21 07:22 02/14/21 07:22 Point of Care Results Point of Care Results: Finger Stick Blood Glucose 143 02/14/21 07:00 Lab Results Blood Type / Crossmatch: No Data to Display Complete Blood Count: No Data to Display Complete Metabolic Panel: No Data to Display Liver Function Panel: No Data to Display Coagulation Panel: No Data to Display Cardiac Panel: No Data to Display Arterial Blood Gas: No Data to Display Venous Blood Gas: No Data to Display Pancreas Panel: No Data to Display Thyroid Panel: No Data to Display Infectious Disease: No Data to Display Blood Cultures: No Data to Display Toxicology Panel: No Data to Display Anesthesia Assessment and Plan Anesthesia History Personal History: No History of Anesthesia Complications Family History: No Family History of Anesthesia Complications Exercise Tolerance Exercise Tolerance: Metabolic Equivalents>4 Cardiac & Pulmonary Exam Cardiac Exam: Normal S1/S2 Heart Sounds Pulmonary Exam: Clear Bilateral Breath Sounds Airway Exam Known Difficult Airway: No Mallampati Class: 3 Mouth Opening: Normal (> 3cm) Thyromental Distance: Greater than 3 cm Neck Range of Motion: Full ROM Neck Circumference: Normal Teeth Condition: Normal Dentition ASA Classification ASA Score: ASA 2 Emergency Case?: No NPO Status NPO Status: NPO Clears >2 hours, Solids >8 hours Anesthesia Plan Resuscitation Status: Full Code Anesthesia Technique: MAC Anesthesia Airway Planned: Natural Airway Monitors Used: Standard Monitors Preoperative Comments:: would like MKJhoana
[2021-02-14 07:46] VITALS: BMI 25.9
[2021-02-14] MEDS: Trypan Blue 0.06% 0.5 ML SYR (08:42)
[2021-02-14] MEDS: Tetracaine 0.5% 4 ML BTL OD (08:43)
--- NOTE | 2021-02-14 08:43 | W.ANESPOSTOP ---
Postoperative Evaluation Date, Time and Location Date Performed: 02/14/21 Time Performed: 08:52 Patient Location: Day Surgery Unit Vital Signs Most Recent Imported Vital Signs: Most Recent Vital Signs Temp Pulse Resp BP Pulse Ox 36.3 C L 65 16 113/59 L 98 02/14/21 07:22 02/14/21 07:22 02/14/21 07:22 02/14/21 07:22 02/14/21 07:22 Most Recent Manually Entered Vital Signs: Adult Blood Pressure: 110/63 Heart Rate: 62 Respirations: 16 Oxygen Saturation (%): 98 Temperature (C): 36.2 C Pain Score (0-10 Scale): 0 Pain Score Most Recent Pain Score: Most Recent Pain Score Pain Level 0 02/14/21 07:22 Assessment Mental Status: Awake (Alert & Oriented to Patient Baseline) Airway and Respiratory Function: Patent airway with normal (patient baseline) respiratory exam Cardiovascular Function: Hemodynamically Stable Hydration Status: Adequately Hydrated Nausea & Vomiting: No Nausea or Vomiting Pain: Pt. Denies Any Pain Peripheral Nerve Block: Patient did not receive a nerve block
[2021-02-14] MEDS: Balanced Salt Soln.-PLUS 500 ML BAG (08:44)
[2021-02-14] MEDS: Duovisc Viscoelastic System EACH 1 EACH (08:45)
[2021-02-14] MEDS: Lidocaine 1% Pres-Free 5 ML VIAL (08:45)
[2021-02-14] MEDS: Lidocaine 2% Jelly 6 ML SYR (08:46)
[2021-02-14] MEDS: Povidone-Iodine Ophth 30 ML BTL (08:47)
[2021-02-14 08:52] VITALS: BP 110/63; PULSE 62; RESP 16; TEMP 36.2; O2SAT 100
[2021-02-14 08:53] VITALS: BP 110/63; PULSE 62; RESP 16; TEMPC 36.2; O2SAT 98
--- NOTE | 2021-02-14 08:55 | W.PM.DSUDISC ---
Discharge Plan Disposition Patient Disposition: HOME Condition: Good Discharge Details Attending Provider: Jed Nelson Primary Care Provider: Roslyn Badillo Home Meds and New Rx's Prescriptions: No Action (DME) pen needle, diabetic [BD Ultra-Fine Micro Pen Needle] 32 gauge x 1/4 needle See Dose Instructions .ROUTE .MEDSUPPLY Qty: 100 RF: 4 aspirin 81 mg tablet,delayed release (DR/EC) 81 mg PO DAILY Qty: 90 RF: 4 tamoxifen 20 mg tablet 20 mg PO DAILY Qty: 90 RF: 4 (DME) Blood Glucose Test Strip See Rx Instructions .MEDSUPPLY Qty: 100 RF: 3 lisinopril 5 mg tablet 5 mg PO DAILY Qty: 90 RF: 4 pravastatin 40 mg tablet 40 mg PO DAILY Qty: 90 RF: 4 (DME) Blood Glucose Test Strip 1 ea Miscellaneous AC & HS Qty: 300 RF: 3 insulin aspart U-100 [Novolog PenFill U-100 Insulin] 100 unit/mL cartridge 1 unit subcut as directed Qty: 6 RF: 6 (DME) FreeStyle Linnea 14 Day Sensor Kit See Rx Instructions .ROUTE .MEDSUPPLY Qty: 1 RF: 6 Discharge Instructions Stand Alone Forms: Post-op Block Cataract, Post-op Topical Cataract, Press Ganey (DSU) Discharge Orders Discharge Orders: Discharge Order (Routine); Ordered 02/14/21 Ordered By: Jed Nelson DS: Diagnosis Discharge Diagnosis (1) Cortical cataract of right eye: Status: Resolved (2) Nuclear sclerotic cataract of right eye: Status: Resolved
--- NOTE | 2021-02-14 08:56 | ROE_ITS ---
Date of service: 02/14/21 Time of Service: 08:56 Operative Note Operative Note DATE OF PROCEDURE: 02/14/21 PRE-OP DIAGNOSIS: Nuclear/cortical cataract, right eye, symptomatic Poor red reflex, right eye secondary to cataract POST-OP DIAGNOSIS: same PROCEDURE: Cataract extraction using phacoemulsification with intraocular lens implantation, right eye, using capsular staining with Vision Blue SURGEON: Jed Nelson ANESTHESIA TYPE: Local By Surgeon and MAC Refer to Anesthesia Record PATHOLOGY: none sent COMPLICATIONS: None Patient was transported to: same day Patient's condition: stable Implants: [employer] / [employer] Tecnis [id number] Indications: Progressive visual loss due to cataract, right eye Procedure Description: CATARACT SURGERY OPERATIVE REPORT PREOPERATIVE DIAGNOSIS: 1. Nuclear/cortical cataract, right eye 2. Poor red reflex secondary to #1 POSTOPERATIVE DIAGNOSIS: Same OPERATION: 1. Cataract extraction using phacoemulsification with posterior chamber intraocular lens implant, right eye. 2. Capsular staining with Vision Blue IOL: IOL Hop Picker/Model: [employer] K[employer] / RIVKA Tecnis [id number] IOL Power: + 21.0 diopters IOL Serial Number: [id number] Optic Diameter: 6.0mm Haptic/Overall Diameter: 13.0mm PHACO INFO: Joe [employer]ion Vision System with OZil and Active Fluidics Cumulative Dispersed Energy (CDE): 4.55 seconds SURGEON: Jed Nelson MD, GILBERTO ANESTHESIA: Monitored Anesthesia Care (MAC), with local sub-tenon's anesthetic infiltration COMPLICATIONS: None SPECIMENS: None INDICATIONS FOR PROCEDURE: The patient is a 65-year-old lady with history of mild myopia who has developed a significant nuclear and cortical cataract in the right eye. She is significantly symptomatic that she desires cataract surgery and attempt to improve and maximize her vision. She desires to remain mildly myopic. Postope rative refractive target is approximately -1.50 diopters. PROCEDURE: The correct surgical eye was identified and marked as the right eye and the pupil was dilated in the preoperative area using mydriatics and cycloplegics. The dilated pupil size was 7.0 mm. Oral sedation was administered in the form of an Imprimis MKO Melt (midazolam 3mg/ketamine 25mg/ondansetron 2mg). The patient was brought to the operating room where cardiopulmonary monitoring was instituted and surgical time-out was performed, confirming the correct operative eye and IOL power. Topical anesthesia was administered and ophthalmic povidone-iodine 5% was instilled into the conjunctival fornices. Lidocaine gel was applied to the cornea and the torres-ocular area was prepped with Betadine 10% solution and draped in the usual sterile fashion for intraocular surgery, including an aperture drape. A Tegaderm transparent film dressing was cut in half and used to cover the lashes and lid margins. Care was taken to sequester the lashes and lid margins under the Tegaderm dressing. A lid speculum was placed between the lids of the operative eye and the Elaina-Chandler operating microscope was maneuvere d into position. Sam scissors were then used to make a conjunctival buttonhole approximately 6mm posterior to the limbus in the inferonasal quadrant. Blunt dissection was carried out to expose bare sclera, and a blunt-tipped sub-tenon?s anesthesia cannula was introduced and passed posteriorly along the globe where non- preserved plain lidocaine was injected into posterior sub-Tenon?s space. A sideport knife was used to make a paracentesis port inferotemporally. Intraocular phenylephrine/lidocaine was injected into the anterior chamber. Air was injected into the anterior chamber, followed by Vision Blue, which was painted over the anterior capsule and then irrigated out with BSS. The anterior chamber was filled with viscoelastic. A 2.4mm keratome knife was used to create a half-thickness groove at the limbus and then to construct a three-plane near- clear corneal tunnel extending 2.0mm into clear cornea superiortemporally. A flap was raised on the anterior capsule and capsulorhexis forceps were used to complete a continuous curvilinear capsulorhexis of 5.0 mm. Balanced salt solution was then used to perform cortical cleaving hydrodissection and nuclear hydrodelineation until the lens could be freely rotated within the capsular bag. The lens nucleus was then disassembled and removed within the capsular bag and iris plane using phacoemulsification. Residual cortical material was removed using the I/A handpiece. The posterior capsule was carefully polished to remove as much residual lens epithelial cells as safely possible. In addition the underside of the anterior capsule was polished as well. A Rizzoma nucleus manipulator was also used to latvian the underside of the anterior capsule in the subincisional area. The capsular bag was then inflated and the anterior chamber deepened with viscoelastic. The lens implant described above was inserted into the capsular bag using the RIVKA [place] Injector. A Kuglen hook was used to dial the IOL into position. Residual viscoelastic was then removed first from posterior to the IOL, then from the anterior chamber using the I/A handpiece. The lens implant was noted to center nicely within the capsular bag. The incisions were stromally hydrated, and the anterior chamber was reformed using BSS. Then 0.5cc of moxifloxacin 1.0mg/ml were injected into the capsular bag and anterior chamber. The incisions were checked with a Weck spear and found to be secure. Several drops of ophthalmic povidone-iodine 5% were then applied to the eye followed by two drops of Imprimis combination prednisolone/moxifloxacin/nepafenac solution. The drapes were removed and a clear plastic protective eye shield was placed over the eye. The patient was then returned to Same Day Surgery in stable condition.
[2021-02-14 09:05] VITALS: BP 109/62; PULSE 64; RESP 16; TEMP 36.2; O2SAT 98
== END 2021-02-14 09:31 | disposition home or self-care (01) ==
PROVIDERS: PCP Family Medicine; Visit Provider Ophthalmology
PROC: (CPT 66984; principal; 2021-02-14 08:30)
DX: H25.11 Age-related nuclear cataract, right eye (principal); E11.9 Type 2 diabetes mellitus without complications; I10 Essential (primary) hypertension; Z85.3 Personal history of malignant neoplasm of breast
CPT/HCPCS: 66984; V2632

== ENCOUNTER 2021-02-28 06:50 | Day surgery (SDC) | payer OTHER, SELFPAY ==
--- NOTE | 2021-02-28 06:16 | ANES.PREOP_ITS ---
General Info Date of Service Date Performed: 02/28/21 Height: 5 ft 2 in Weight: 64.2 kg Body Mass Index (BMI): 25.9 Surgical Procedure: Operation Date: 02/28/21 08:40 Proposed Procedures Side Surgeon p Cataract Extraction with IOL Implant Left Jed Nelson MD Meds Allergies and Home Medications Allergies Allergy/AdvReac Type Severity Reaction Status Date / Time Sulfa (Sulfonamide Allergy Mild HIVES Verified 02/28/21 07:12 Antibiotics) Home Medication Medication Instructions Recorded aspirin 81 mg tablet,delayed 81 mg PO DAILY #90 tab-cap 02/13/19 release pen needle, diabetic 32 gauge x #100 each 02/13/19 1/4 tamoxifen 20 mg tablet 20 mg PO DAILY #90 tab 01/18/20 blood sugar diagnostic #300 strip 04/01/20 insulin aspart U-100 100 unit/mL 1 unit SUBCUT as directed #6 box 04/01/20 subcutaneous cartridge lisinopril 5 mg tablet 5 mg PO DAILY #90 tab 04/01/20 pravastatin 40 mg tablet 40 mg PO DAILY #90 tab-cap 04/01/20 blood sugar diagnostic #100 ea 10/30/20 flash glucose sensor #1 ea 11/20/20 Current Visit Medications: Current Medications Generic Name Dose Route Start Last Admin Trade Name Freq PRN Reason Stop Dose Admin Acetaminophen 1,000 mg 02/28/21 06:00 Acetaminophen 500 Mg Tab PO Q4H PRN PRN Miscellaneous Medication 0 ml 02/28/21 06:00 Prednisolone 1%, Moxifloxacin 0.5%, Nepafenac 0.1% 5ml Btl OS DIRECTED [facility] Miscellaneous Medication 0 ml 02/28/21 06:00 Tropicam./Phenyleph. (1/2.5%) 5 Ml Btl OS DIRECTED SHAKIRA Tetracaine HCl 0 ml 02/28/21 06:00 Tetracaine 0.5% 4 Ml Btl OS DIRECTED [facility] PFSH Active Problems Active Problems: Problem Status Onset Code Cortical cataract of left eye H26.9 Nuclear sclerotic cataract of left eye H25.12 Nuclear sclerotic cataract of right eye H25.11 Cortical cataract of right eye H26.9 Collagenous colitis K52.831 Anosmia 04/04/15 R43.0 Essential hypertension 07/24/13 I10 Hyperplastic polyp of intestine 02/05/14 K63.5 Diabetes type I ~02/2013 E10.9 Trauma of toe of right foot S99.921A Osteopenia M85.80 Breast cancer, left breast C50.912 Hyperlipidemia 02/05/14 E78.5 Medical History Medical History (Updated 02/27/21 @ 20:52 by Jed Nelson MD) Breast cancer, [place] [facility] [place] - invasive lobular carcinoma-neg.nodes/neg.metastasis bilat.mastectomy:09/2019 - No chemo-no ROR on Tamoxifen Collagenous colitis dx colonoscopy 09/2020 Diabetes mellitus Hyperlipidemia (02/05/14) Hypertension Osteopenia Surgical History Surgical History (Updated 02/28/21 @ 07:12 by Marcy Baltazar) section Hx of cataract surgery Hx of colonoscopy Ligation of fallopian tube S/P bilateral mastectomy Tobacco Smoking/Tobacco Use Status: Never Passive smoking exposure: No Second hand exposure: No Alcohol Alcohol Intake: current Alcohol intake frequency: holidays/special occasions only Substance Use Substance use: Never Substance use type: does not use Vital Signs and Lab Results Vital Signs Most Recent Vital Signs in EMR: Temp Pulse Resp BP Pulse Ox 36.2 C L 61 16 108/63 98 02/28/21 07:14 02/28/21 07:14 02/28/21 07:14 02/28/21 07:14 02/28/21 07:14 Lab Results Blood Type / Crossmatch: No Data to Display Complete Blood Count: No Data to Display Complete Metabolic Panel: No Data to Display Liver Function Panel: No Data to Display Coagulation Panel: No Data to Display Cardiac Panel: No Data to Display Arterial Blood Gas: No Data to Display Venous Blood Gas: No Data to Display Pancreas Panel: No Data to Display Thyroid Panel: No Data to Display Infectious Disease: No Data to Display Blood Cultures: No Data to Display Toxicology Panel: No Data to Display Anesthesia Assessment and Plan Anesthesia History Personal History: No History of Anesthesia Complications Family History: No Family History of Anesthesia Complications Exercise Tolerance Exercise Tolerance: Metabolic Equivalents>4 Cardiac & Pulmonary Exam Cardiac Exam: Normal S1/S2 Heart Sounds Pulmonary Exam: Clear Bilateral Breath Sounds Airway Exam Known Difficult Airway: No Mallampati Class: 3 Mouth Opening: Normal (> 3cm) Thyromental Distance: Greater than 3 cm Neck Range of Motion: Full ROM Neck Circumference: Normal Teeth Condition: Normal Dentition ASA Classification ASA Score: ASA 2 Emergency Case?: No NPO Status NPO Status: NPO Clears >2 hours, Solids >8 hours Anesthesia Plan Resuscitation Status: Full Code Anesthesia Technique: MAC Anesthesia Airway Planned: Natural Airway Monitors Used: Standard Monitors Preoperative Comments:: had mko previous, would like the same. No health history change.
[2021-02-28] MEDS: Tropicam./Phenyleph. (1/2.5%) 5 ML BTL OS ×3 (07:10→07:23)
[2021-02-28 07:12] VITALS: BMI 25.9
[2021-02-28 07:14] VITALS: BP 108/63; PULSE 61; RESP 16; TEMP 36.2; O2SAT 98
[2021-02-28] MEDS: Trypan Blue 0.06% 0.5 ML SYR (08:02)
[2021-02-28] MEDS: Povidone-Iodine Ophth 30 ML BTL (08:03)
[2021-02-28] MEDS: Lidocaine 2% Jelly 6 ML SYR (08:06)
[2021-02-28] MEDS: Lidocaine 1% Pres-Free 5 ML VIAL (08:06)
[2021-02-28] MEDS: Duovisc Viscoelastic System EACH 1 EACH (08:07)
[2021-02-28] MEDS: Balanced Salt Soln.-PLUS 500 ML BAG (08:08)
[2021-02-28] MEDS: Tetracaine 0.5% 4 ML BTL OS (08:09)
[2021-02-28 08:32] VITALS: BP 116/61; PULSE 60; RESP 16; TEMP 36.3; O2SAT 97
--- NOTE | 2021-02-28 08:33 | W.PM.DSUDISC ---
Discharge Plan Disposition Patient Disposition: HOME Condition: Good Discharge Details Attending Provider: Jed Nelson Primary Care Provider: Roslyn Badillo Home Meds and New Rx's Prescriptions: No Action (DME) pen needle, diabetic [BD Ultra-Fine Micro Pen Needle] 32 gauge x 1/4 needle See Dose Instructions .ROUTE .MEDSUPPLY Qty: 100 RF: 4 aspirin 81 mg tablet,delayed release (DR/EC) 81 mg PO DAILY Qty: 90 RF: 4 tamoxifen 20 mg tablet 20 mg PO DAILY Qty: 90 RF: 4 (DME) Blood Glucose Test Strip See Rx Instructions .MEDSUPPLY Qty: 100 RF: 3 lisinopril 5 mg tablet 5 mg PO DAILY Qty: 90 RF: 4 pravastatin 40 mg tablet 40 mg PO DAILY Qty: 90 RF: 4 (DME) Blood Glucose Test Strip 1 ea Miscellaneous AC & HS Qty: 300 RF: 3 insulin aspart U-100 [Novolog PenFill U-100 Insulin] 100 unit/mL cartridge 1 unit subcut as directed Qty: 6 RF: 6 (DME) FreeStyle Linnea 14 Day Sensor Kit See Rx Instructions .ROUTE .MEDSUPPLY Qty: 1 RF: 6 Discharge Instructions Stand Alone Forms: Post-op Topical Cataract, Luigi Ganey (DSU) Discharge Orders Discharge Orders: Discharge Order (Routine); Ordered 02/28/21 Ordered By: Jed Nelson DS: Diagnosis Discharge Diagnosis (1) Nuclear sclerotic cataract of left eye: Status: Resolved (2) Cortical cataract of left eye: Status: Resolved
--- NOTE | 2021-02-28 08:34 | ROE_ITS ---
Date of service: 02/28/21 Time of Service: 08:34 Operative Note Operative Note DATE OF PROCEDURE: 02/28/21 PRE-OP DIAGNOSIS: Nuclear/cortical cataract, left eye Myopia POST-OP DIAGNOSIS: same PROCEDURE: Cataract extraction using phacoemulsification with intraocular lens implant, left eye, using capsular staining with Vision Blue SURGEON: Jed Nelson ANESTHESIA TYPE: Local By Surgeon and MAC Refer to Anesthesia Record COMPLICATIONS: None Patient was transported to: same day Patient's condition: stable Implants: [employer] / [employer] Tecnis [id number] Indications: Progressive decreased vision due to cataract, left eye, with poor red reflex Procedure Description: CATARACT SURGERY OPERATIVE REPORT PREOPERATIVE DIAGNOSIS: 1. Nuclear/cortical cataract, left eye 2. Poor red reflex secondary to #1 3. Myopia with desire to remain mildly myopic postoperatively POSTOPERATIVE DIAGNOSIS: Same OPERATION: 1. Cataract extraction using phacoemulsification with posterior chamber intraocular lens implant, left eye. 2. Capsular staining with Vision Blue IOL: IOL Ic Designer Standard Cells/Model: [employer] K[employer] / [employer]IV[employer] Tecnis [id number] IOL Power: + 20.0 diopters IOL Serial Number: [id number] Optic Diameter: 6.0 mm Haptic/Overall Diameter: 13.0 mm PHACO INFO: Joe [employer] Vision System with OZil and Active [employer]uidics Cumulative Dispersed Energy (CDE): 4.11 seconds SURGEON: Jed Nelson MD, GILBERTO ANESTHESIA: Monitored A [facility] (MAC), with local sub-tenon's anesthetic infiltration COMPLICATIONS: None SPECIMENS: None INDICATIONS FOR PROCEDURE: The patient is a 65-year-old lady with history of myopia who has developed symp tomatic bilateral nuclear and cortical cataract. She has already undergone cataract surgery in the right eye with a mildly myopic result, as desired. She now presents for cataract surgery in the left eye, with postoperative refractive target of -1.25 diopters or so. PROCEDURE: The correct surgical eye was identified and marked as the left eye and the pupil was dilated in the preoperative area using mydriatics and cycloplegics. The dilated pupil size was 7.5 mm. Oral sedation was administered in the form of an Imprimis MKO Melt (midazolam 3mg/ketamine 25mg/ondansetron 2m g). The patient was brought to the operating room where cardiopulmonary monitoring was instituted and surgical time-out was performed, confirming the correct operative eye and IOL power. Topical anesthesia was administered and ophthalmic povidone-iodine 5% was instilled into the conjunctival fornices. Lidocaine gel was applied to the cornea and the torres-ocular area was prepped with Betadine 10% solution and draped in the usual sterile fashion for intraocular surgery, including an aperture drape. A Tegaderm transparent film dressing was cut in half and used to cover the lashes and lid margins. Care was taken to sequester the lashes and lid margins under the Tegaderm dressing. A lid speculum was placed between the lids of the operative eye and the Elaina-Chandler operating microscope was m aneuvered into position. Sam scissors were then used to make a conjunctival buttonhole approximately 6mm posterior to the limbus in the inferonasal quadrant. Blunt dissection was carried out to expose bare sclera, and a blunt-tipped sub-tenon?s anesthesia cannula was introduced and passed posteriorly along the globe where non- preserved plain lidocaine was injected into posterior sub-Tenon?s space. A sideport knife was used to make a paracentesis port superiorly/superiortemporally. Intraocular phenylephrine/lidocaine was injected int the anterior chamber.. Air was then injected into the anterior chamber, followed by Vision Blue, which was painted over the anterior capsule and then irrigated out using BSS. The anterior chamber was filled with viscoelastic. A 2.4mm keratome knife was used to create a half-thickness groove at the limbus and then to construct a three-plane near-clear corneal tunnel extending 2.0mm into clear cornea at the 3:00 position. A flap was raised on the anterior capsule and capsulorhexis forceps were used to complete a continuous curvilinear capsulorhexis of 5.0 mm. Balanced salt solution was then used to perform cortical cleaving hydrodissection and nuclear hydrodelineation until the lens could be freely rotated within the capsular bag. The lens nucleus was then disassembled and removed within the capsular bag and iris plane using phacoemulsification. Residual cortical material was removed using the 45-degree angled silicone I/A tip with 0.3mm port. The posterior capsule was carefully polished to remove as much residual lens epithelial cells as safely possible. The capsular bag was then inflated and the anterior chamber deepened with viscoelastic. The lens implant described above was inserted into the capsular bag using the [employer] Platinu m Injector. A Kuglen hook was used to dial the IOL into position. Residual viscoelastic was then removed first from posterior to the IOL, then from the anterior chamber using the I/A handpiece. The lens implant was noted to center nicely within the capsular bag. The incisions were stromally hydrated, and the anterior chamber was reformed using BSS. Then 0.5cc of moxifloxacin 1.0mg/ml were injected into the capsular bag and anterior chamber. The incisions were checked with a Weck spear and found to be secure. Several drops of ophthalmic povidone-iodine 5% were then applied to the eye followed by two drops of Imprimis combination prednisolone/moxifloxacin/nepafenac solution. The drapes were removed and a clear plastic protective eye shield was placed over the eye. The patient was then returned to Same Day Surgery in stable condition.
--- NOTE | 2021-02-28 08:34 | W.ANESPOSTOP ---
Postoperative Evaluation Date, Time and Location Date Performed: 02/28/21 Time Performed: 08:35 Patient Location: Day Surgery Unit Vital Signs Most Recent Imported Vital Signs: Most Recent Vital Signs Temp Pulse Resp BP Pulse Ox 36.2 C L 61 16 108/63 98 02/28/21 07:14 02/28/21 07:14 02/28/21 07:14 02/28/21 07:14 02/28/21 07:14 Most Recent Manually Entered Vital Signs: Adult Blood Pressure: 116/61 Heart Rate: 58 Respirations: 16 Oxygen Saturation (%): 97 Temperature (C): 36.3 C Pain Score (0-10 Scale): 0 Pain Score Most Recent Pain Score: Most Recent Pain Score Pain Level 0 02/28/21 07:14 Assessment Mental Status: Awake (Alert & Oriented to Patient Baseline) Airway and Respiratory Function: Patent airway with normal (patient baseline) respiratory exam Cardiovascular Function: Hemodynamically Stable Hydration Status: Adequately Hydrated Nausea & Vomiting: No Nausea or Vomiting Pain: Pt. Denies Any Pain Peripheral Nerve Block: Other (Local by Dr. Nelson)
[2021-02-28 08:35] VITALS: BP 116/61; PULSE 58; RESP 16; TEMPC 36.3; O2SAT 97
[2021-02-28 09:03] VITALS: BP 118/60; PULSE 71; RESP 16; TEMP 36.5; O2SAT 95
== END 2021-02-28 09:10 | disposition home or self-care (01) ==
PROVIDERS: PCP Family Medicine; Visit Provider Ophthalmology
PROC: (CPT 66984; principal; 2021-02-28 08:30)
DX: H25.12 Age-related nuclear cataract, left eye (principal); E11.9 Type 2 diabetes mellitus without complications; I10 Essential (primary) hypertension
CPT/HCPCS: 66984; V2632

== ENCOUNTER 2021-04-16 14:56 | Outpatient (REF) | payer OTHER, SELFPAY ==
[2021-04-16 16:13] LABS: ALT 22 U/L (14-59); AST 21 U/L (15-37); Albumin 3.5 g/dL (3.4-5.0); Alkaline Phosphatase 72 U/L (46-116); Anion Gap 6.6 mmol/L (3-11); BUN 9 mg/dL (7-18); Bilirubin, Total 0.3 mg/dL (0.2-1.0); CO2 30.4 mmol/L (21.0-32.0); CREATININE 0.9 mg/dL (0.55-1.02); Chloride 106 mmol/L (98-107); Glucose 141 mg/dL (74-106); Potassium 3.9 mmol/L (3.5-5.1); Sodium 143 mmol/L (136-145); Total Protein 6.7 g/dL (6.4-8.2)
[2021-04-16 16:24] LABS: Hemoglobin A1C 7.5 % (<5.7)
[2021-04-16 20:32] LABS: COMMENT (LAB VIEW ONLY) 51.58 mg/dL; Microalb ug/mg Crea 9.9 ug/mg Cr
[2021-04-16 20:43] LABS: Calculated LDL 93 mg/dL (<100); Cholesterol 178 mg/dL (<200); HDL Cholesterol 76 mg/dL (40-60); Triglyceride 47 mg/dL (<150)
== END 2021-04-16 14:57 | disposition home or self-care (01) ==
LOC: LBN 14:56
PROVIDERS: PCP Family Medicine; Visit Provider Family Medicine
DX: E11.9 Type 2 diabetes mellitus without complications (principal)
CPT/HCPCS: 80053; 80061; 82043; 82570; 83036

== ENCOUNTER 2021-08-14 02:28 | Outpatient (CLI) | payer OTHER, SELFPAY ==
[2021-08-14 13:05] LABS: Hemoglobin A1C 7.4 % (<5.7)
[2021-08-14 14:19] LABS: TSH 0.94 uIU/mL (0.36-3.74)
[2021-08-14 15:26] LABS: Anion Gap 6.9 mmol/L (3-11); BUN 13 mg/dL (7-18); CO2 32.1 mmol/L (21.0-32.0); CREATININE 0.8 mg/dL (0.55-1.02); Calcium 9.3 mg/dL (8.5-10.1); Calculated LDL 94 mg/dL (<100); Chloride 104 mmol/L (98-107); Cholesterol 179 mg/dL (<200); Glucose 98 mg/dL (74-106); HDL Cholesterol 77 mg/dL (40-60); Potassium 3.8 mmol/L (3.5-5.1); Sodium 143 mmol/L (136-145); Triglyceride 44 mg/dL (<150)
[2021-08-18 12:21] LABS: IgA 252 mg/dL (85-499); Interpretation (See Note); Tissue Transglutaminase IgA <1.2 U/mL (<4.0)
== END 2021-08-14 02:29 | disposition home or self-care (01) ==
PROVIDERS: Surgery; PCP Family Medicine; Visit Provider Nurse Practitioner Adult Health
DX: E11.9 Type 2 diabetes mellitus without complications (principal); I10 Essential (primary) hypertension; R19.4 Change in bowel habit
CPT/HCPCS: 36415; 80048; 80061; 82784; 83516; 83036; 84443

== ENCOUNTER 2021-11-07 00:40 | Outpatient (CLI) | payer OTHER, SELFPAY ==
--- NOTE | 2021-11-07 08:30 | DI.DEXA_ITS ---
Exam(s) XR DEXA BONE DENSITY W/WO MICHAEL EXAM: XR DEXA BONE DENSITY W/WO MICHAEL CLINICAL HISTORY: LONG-TERM CURRENT USE OF AROMATASE INHIBITOR, Z79.811, H/O OSTEOPOROSIS TECHNIQUE: COMPARISON: CR XR DEXA BONE DENSITY W/WO MICHAEL from 11/02/2019 FINDINGS: Lateral Spine Image: Unremarkable. No compression deformities identified. Left hip: Total T-Score: -1.7. This compares to -1.0 on the prior examination. Total Z-Score: -0.5 T- and Z-scores: Findings are consistent with osteopenia. Lumbar Spine: Total T-Score: -0.6. This compares to -0.8 on the prior examination. Total Z-Score: 1.1 T- and Z-scores: Within normal limits. IMPRESSION: No evidence of osteoporosis.
== END 2021-11-07 01:00 ==
PROVIDERS: PCP Nurse Practitioner Family; Visit Provider Physician Assistant
DX: M85.88 Other specified disorders of bone density and structure, other site (principal); Z79.811 Long term (current) use of aromatase inhibitors; Z85.3 Personal history of malignant neoplasm of breast
CPT/HCPCS: 77080

== ENCOUNTER 2021-11-21 13:42 | Outpatient (REF) | payer OTHER, SELFPAY ==
--- NOTE | 2021-11-21 11:30 | PAPFT_PTH ---
PATIENT: Sharon Llamas LOC: [facility] U#:[id number] AGE/SX: 66/F ROOM: RE11/21/[address]: SATYA Arce : 1955 BED: DIS: 11/21/2021 SPEC #: [id number] RECD: 11/21/21 18:23 STATUS: JUAN REQ #: [id number] MERVAT: 11/21/21 11:[address]: Rhiannon Welch DEPT: [facility] Cytology RECD BY: Yas Irvin Tissues: 1 - CX/ENDOCX FOR PAP SMEARS Procedures: PAP THIN PREP/[facility] Screening HPV DNA PROBE Comments: [id number]
== END 2021-11-21 13:43 | disposition home or self-care (01) ==
LOC: LBN 13:42
PROVIDERS: PCP Nurse Practitioner Family; Visit Provider Nurse Practitioner Family
DX: Z12.4 Encounter for screening for malignant neoplasm of cervix (principal); Z11.51 Encounter for screening for human papillomavirus (HPV)
CPT/HCPCS: 88142; 87624

== ENCOUNTER 2022-06-05 01:52 | Outpatient (CLI) | payer MEDICARE, SELFPAY ==
[2022-06-05 08:13] LABS: Abs Immature Grans 0.01 10^3/uL (0.0-0.06); Absolute Basophil Count 0.04 10^3/uL (0.0-0.2); Absolute Eosinophil Count 0.09 10^3/uL (0.0-0.7); Absolute Lymphocyte Count 1.19 10^3/uL (1.2-3.4); Absolute Monocyte Count 0.54 10^3/uL (0.1-0.8); Absolute Neutrophil Count 4.17 10^3/uL (1.2-6.7); Basophils % 0.7; Eosinophils % 1.5; HCT 39.9 % (36.0-46.0); HGB 13.5 g/dL (11.2-15.7); Immature Grans % 0.2; Lymphocytes % 19.7; MCH 31.3 pg (27.0-33.0); MCHC 33.8 % (32.0-36.0); MCV 93 fL (80-95); MPV 9.4 fL (8.0-11.0); Monocytes % 8.9; Platelet Count 319 10^3/uL (130-400); RBC 4.31 10^6/uL (3.93-5.22); RDW 12.1 % (11.7-14.6); RDW-SD 42.1 fL; WBC 6.04 10^3/uL (4.4-10.8)
[2022-06-05 09:09] LABS: ALT 20 U/L (14-59); AST 22 U/L (15-37); Albumin 3.5 g/dL (3.4-5.0); Alkaline Phosphatase 68 U/L (46-116); Anion Gap 4.3 mmol/L (3-11); BUN 11 mg/dL (7-18); Bilirubin, Total 0.3 mg/dL (0.2-1.0); CO2 31.7 mmol/L (21.0-32.0); CREATININE 0.9 mg/dL (0.55-1.02); Calcium 9.3 mg/dL (8.5-10.1); Chloride 104 mmol/L (98-107); Estimated GFR 71.39 (mL/min/1.73m2); Glucose 108 mg/dL (74-106); Potassium 3.6 mmol/L (3.5-5.1); Sodium 140 mmol/L (136-145); Total Protein 7.5 g/dL (6.4-8.2)
== END 2022-06-05 01:53 | disposition home or self-care (01) ==
PROVIDERS: PCP Nurse Practitioner Family; Visit Provider Internal Medicine
DX: C50.412 Malignant neoplasm of upper-outer quadrant of left female breast (principal)
CPT/HCPCS: 36415; 80053; 85025

== ENCOUNTER 2022-12-22 18:18 | Outpatient (CLI) | payer MEDICARE, SELFPAY ==
[2022-12-22 16:16] LABS: Abs Immature Grans 0.02 10^3/uL (0.0-0.06); Absolute Basophil Count 0.04 10^3/uL (0.0-0.2); Absolute Eosinophil Count 0.08 10^3/uL (0.0-0.7); Absolute Lymphocyte Count 1.68 10^3/uL (1.2-3.4); Absolute Monocyte Count 0.49 10^3/uL (0.1-0.8); Basophils % 0.7; Eosinophils % 1.3; HCT 38.9 % (36.0-46.0); HGB 12.8 g/dL (11.2-15.7); Immature Grans % 0.3; MCH 31.2 pg (27.0-33.0); MCHC 32.9 % (32.0-36.0); MCV 95 fL (80-95); MPV 9.4 fL (8.0-11.0); Monocytes % 8.2; Neutrophils % 61.5; Platelet Count 304 10^3/uL (130-400); RDW 12.8 % (11.7-14.6); RDW-SD 44.1 fL; WBC 6.01 10^3/uL (4.4-10.8)
[2022-12-22 16:30] LABS: ALT 17 U/L (14-59); AST 16 U/L (15-37); Albumin 3.3 g/dL (3.4-5.0); Alkaline Phosphatase 52 U/L (46-116); Anion Gap 2.7 mmol/L (3-11); BUN 14 mg/dL (7-18); Bilirubin, Total 0.2 mg/dL (0.2-1.0); CO2 32.3 mmol/L (21.0-32.0); CREATININE 0.9 mg/dL (0.55-1.02); Calcium 9.5 mg/dL (8.5-10.1); Chloride 109 mmol/L (98-107); Estimated GFR 70.95 (mL/min/1.73m2); Glucose 91 mg/dL (74-106); Potassium 4.4 mmol/L (3.5-5.1); Sodium 144 mmol/L (136-145); Total Protein 6.9 g/dL (6.4-8.2)
== END 2022-12-22 18:19 | disposition home or self-care (01) ==
LOC: LBO 18:19
PROVIDERS: PCP Nurse Practitioner Family; Visit Provider Internal Medicine
DX: C50.412 Malignant neoplasm of upper-outer quadrant of left female breast (principal); Z17.0 Estrogen receptor positive status [ER+]
CPT/HCPCS: 36415; 80053; 85025

== ENCOUNTER 2023-02-23 03:01 | Outpatient (CLI) | payer MEDICARE, SELFPAY ==
[2023-02-23 07:51] LABS: Glucose 155 mg/dL (74-106)
[2023-02-24 16:46] LABS: C-Peptide <0.1 ng/mL (1.1 - 4.4)
== END 2023-02-23 03:02 | disposition home or self-care (01) ==
LOC: LBO 03:01
PROVIDERS: PCP Nurse Practitioner Family; Visit Provider Nurse Practitioner Family
DX: E10.9 Type 1 diabetes mellitus without complications (principal); Z79.4 Long term (current) use of insulin; E78.5 Hyperlipidemia, unspecified; I10 Essential (primary) hypertension; Z85.3 Personal history of malignant neoplasm of breast
CPT/HCPCS: 36415; 82947; 84681

== ENCOUNTER 2023-02-24 02:12 | Outpatient (CLI) | payer MEDICARE, SELFPAY ==
--- NOTE | 2023-02-24 07:00 | DI.US_ITS ---
Exam(s) US SOFT TISS ABD WALL/LOW BACK EXAM: US SOFT TISS ABD WALL/LOW BACK CLINICAL HISTORY: RUQ LUMP, R19.01. TECHNIQUE: Ultrasound was performed using standard protocol. COMPARISON: US US BREAST LT LIMITED from 08/09/2019 FINDINGS: Images submitted for interpretation from dedicated ultrasound examination of a palpable lump in the r egion of the right upper quadrant near the midline. These images reveal a small 0.3 x 0.2 x 0.3 cm well-defined mass below the skin layer and not exhibit ing an obvious communication tract to the skin. This is not a highly vascular structure, not exhibit ing internal flow on color/Doppler imaging interrogation. IMPRESSION: There is a small 3 x 2 x 3 mm mass in the subcutaneous tissues corresponding to the palpable finding. This does not have the appearance of a lipoma nor of a simple cyst. Appropriate follow-up recommen ded. DATA REPOSITORY:
== END 2023-02-24 02:32 ==
LOC: DI 02:13
PROVIDERS: PCP Nurse Practitioner Family; Visit Provider Nurse Practitioner Family
DX: R19.01 Right upper quadrant abdominal swelling, mass and lump (principal)
CPT/HCPCS: 76705

== ENCOUNTER → 2023-03-15 07:32 | Outpatient (BNVA) | payer MEDICARE, SELFPAY | PROVIDERS: PCP Nurse Practitioner Family; Referring Provider Nurse Practitioner Family; Visit Provider Surgery | DX: R22.2 Localized swelling, mass and lump, trunk (principal) | CPT/HCPCS: 99203; 99214 ==

== ENCOUNTER 2023-07-27 02:47 | Outpatient (CLI) | payer MEDICARE, SELFPAY ==
[2023-07-27 09:35] LABS: Abs Immature Grans 0.03 10^3/uL (0.0-0.06); Absolute Basophil Count 0.07 10^3/uL (0.0-0.2); Absolute Lymphocyte Count 1.41 10^3/uL (1.2-3.4); Absolute Monocyte Count 0.62 10^3/uL (0.1-0.8); Absolute Neutrophil Count 4.66 10^3/uL (1.2-6.7); Eosinophils % 2.9; HGB 13.4 g/dL (11.2-15.7); Immature Grans % 0.4; Lymphocytes % 20.2; MCH 30.7 pg (27.0-33.0); MCHC 32.7 % (32.0-36.0); MCV 94 fL (80-95); MPV 9.1 fL (8.0-11.0); Monocytes % 8.9; Neutrophils % 66.6; Platelet Count 382 10^3/uL (130-400); RBC 4.36 10^6/uL (3.93-5.22); RDW 12.1 % (11.7-14.6); RDW-SD 42.2 fL; WBC 6.99 10^3/uL (4.4-10.8)
[2023-07-27 09:58] LABS: ALT 19 U/L (14-59); AST 23 U/L (15-37); Alkaline Phosphatase 67 U/L (46-116); Anion Gap 8.1 mmol/L (3-11); BUN 11 mg/dL (7-18); Bilirubin, Total 0.2 mg/dL (0.2-1.0); CO2 29.9 mmol/L (21.0-32.0); CREATININE 0.9 mg/dL (0.55-1.02); Calcium 10.3 mg/dL (8.5-10.1); Chloride 106 mmol/L (98-107); Estimated GFR 70.51 (mL/min/1.73m2); Glucose 135 mg/dL (74-106); Potassium 4.3 mmol/L (3.5-5.1); Sodium 144 mmol/L (136-145); Total Protein 7.2 g/dL (6.4-8.2)
== END 2023-07-27 02:48 | disposition home or self-care (01) ==
LOC: LBO 02:48
PROVIDERS: PCP Nurse Practitioner Family; Visit Provider Internal Medicine
DX: C50.412 Malignant neoplasm of upper-outer quadrant of left female breast (principal)
CPT/HCPCS: 36415; 80053; 85025

== ENCOUNTER 2023-11-05 15:26 | Outpatient (REF) | payer MEDICARE, SELFPAY ==
[2023-11-05 13:41] LABS: COMMENT (LAB VIEW ONLY) 248.24 mg/dL; Microalb ug/mg Crea 8.4 ug/mg Cr
== END 2023-11-05 15:27 | disposition home or self-care (01) ==
LOC: LBN 15:26
PROVIDERS: PCP Nurse Practitioner Family; Visit Provider Nurse Practitioner Family
DX: E11.9 Type 2 diabetes mellitus without complications (principal)
CPT/HCPCS: 82043; 82570

== ENCOUNTER → 2024-01-13 03:36 | Outpatient (CLI) | payer MEDICARE, SELFPAY ==
--- NOTE | 2024-01-13 | DI.DEXA_ITS ---
Exam(s) XR DEXA BONE DENSITY W/WO MICHAEL EXAM: XR DEXA BONE DENSITY W/WO MICHAEL CLINICAL HISTORY: M58.852 Osteopenia of left hip,C50.412,Z17.0 Malig neop of UOQ lt Breast FE TECHNIQUE: COMPARISON: CR XR DEXA BONE DENSITY W/WO MICHAEL from 11/07/2021 FINDINGS: Lateral Spine Image: Unremarkable. No compression deformities identified. Left hip: Total T-Score: -2.0. This compares to -1.7 on the prior examination. Total Z-Score: -0.7 T- and Z-scores: Findings are consistent with osteopenia. Lumbar Spine: Total T-Score: -0.5. This compares to -0.6 on the prior examination. Total Z-Score: 1.3 T- and Z-scores: Within normal limits. IMPRESSION: No evidence of osteoporosis.
== END ==
PROVIDERS: PCP Nurse Practitioner Family; Visit Provider Nurse Practitioner Family
DX: M85.852 Other specified disorders of bone density and structure, left thigh (principal); C50.412 Malignant neoplasm of upper-outer quadrant of left female breast; Z17.0 Estrogen receptor positive status [ER+]
CPT/HCPCS: 77080

== ENCOUNTER 2024-02-29 01:28 | Outpatient (CLI) | payer MEDICARE, SELFPAY ==
[2024-02-29 07:45] LABS: Absolute Basophil Count 0.05 10^3/uL (0.0-0.2); Absolute Eosinophil Count 0.19 10^3/uL (0.0-0.7); Absolute Lymphocyte Count 1.05 10^3/uL (1.2-3.4); Absolute Monocyte Count 0.51 10^3/uL (0.1-0.8); Absolute Neutrophil Count 3.16 10^3/uL (1.2-6.7); Eosinophils % 3.8 %; HCT 41.9 % (36.0-46.0); Lymphocytes % 21.2 %; MCH 31.5 pg (27.0-33.0); MCHC 33.4 % (32.0-36.0); MCV 94 fL (80-95); MPV 10.3 fL (8.0-11.0); Monocytes % 10.3 %; Neutrophils % 63.7 %; Platelet Count 297 10^3/uL (130-400); RBC 4.45 10^6/uL (3.93-5.22); RDW 12.8 % (11.7-14.6); RDW-SD 44.6 fL; WBC 4.96 10^3/uL (4.4-10.8)
[2024-02-29 08:17] LABS: ALT 20 U/L (14-59); AST 20 U/L (15-37); Albumin 3.5 g/dL (3.4-5.0); Alkaline Phosphatase 67 U/L (46-116); Anion Gap 8.4 mmol/L (3-11); BUN 9 mg/dL (7-18); Bilirubin, Total 0.4 mg/dL (0.2-1.0); CO2 28.6 mmol/L (21.0-32.0); CREATININE 0.9 mg/dL (0.55-1.02); Calcium 9.2 mg/dL (8.5-10.1); Calculated LDL 104 mg/dL (<100); Chloride 106 mmol/L (98-107); Cholesterol 196 mg/dL (<200); Estimated GFR 70.51 (mL/min/1.73m2); Glucose 116 mg/dL (74-106); HDL Cholesterol 79 mg/dL (40-60); Potassium 4.1 mmol/L (3.5-5.1); Sodium 143 mmol/L (136-145); Total Protein 7.2 g/dL (6.4-8.2); Triglyceride 66 mg/dL (<150)
[2024-02-29 19:06] LABS: Hepatitis C Ab w Rflx HCV PCR Negative (Negative)
== END 2024-02-29 01:29 | disposition home or self-care (01) ==
PROVIDERS: PCP Nurse Practitioner Family; Visit Provider Nurse Practitioner Family
DX: E10.9 Type 1 diabetes mellitus without complications (principal); C50.412 Malignant neoplasm of upper-outer quadrant of left female breast
CPT/HCPCS: 36415; 80053; 80061; 86803; 85025

== ENCOUNTER 2024-05-25 02:25 | Outpatient (CLI) | payer MEDICARE, SELFPAY | END 2024-05-25 02:45 | LOC: DI 02:25 | PROVIDERS: PCP Nurse Practitioner Family; Visit Provider Nurse Practitioner Family | DX: R01.1 Cardiac murmur, unspecified (principal) | CPT/HCPCS: 93306 ==

== ENCOUNTER 2024-11-24 18:29 | Outpatient (REF) | payer MEDICARE, SELFPAY ==
[2024-11-24 14:08] LABS: COMMENT (LAB VIEW ONLY) < 13.00 mg/dL
== END 2024-11-24 18:30 | disposition home or self-care (01) ==
LOC: LBN 18:29
PROVIDERS: PCP Nurse Practitioner Family; Visit Provider Nurse Practitioner Family
DX: E11.9 Type 2 diabetes mellitus without complications (principal); I10 Essential (primary) hypertension; F32.9 Major depressive disorder, single episode, unspecified; F41.1 Generalized anxiety disorder
CPT/HCPCS: 82043; 82570

== ENCOUNTER 2025-08-21 03:27 | Outpatient (CLI) | payer MEDICARE, SELFPAY ==
[2025-08-21 08:41] LABS: Anion Gap 8.4 mmol/L (3-11); BUN 10 mg/dL (9-23); CO2 26.6 mmol/L (20.0-31.0); Calcium 9.3 mg/dL (8.3-10.6); Chloride 108 mmol/L (98-107); Glucose 91 mg/dL (74-106); Potassium 3.7 mmol/L (3.5-5.1); Sodium 143 mmol/L (136-145)
[2025-08-21 08:46] LABS: Vitamin D 25 Total 26 ng/mL (30-100)
[2025-08-21 19:03] LABS: HIV-1/2 Ag & Ab Screen Negative (Negative)
[2025-08-21 19:23] LABS: HBs Antibody, Quant 3.8 mIU/mL (See Note); Hepatitis B Surface Antigen Negative (Negative)
== END 2025-08-21 03:28 | disposition home or self-care (01) ==
LOC: LBO 03:28
PROVIDERS: PCP Nurse Practitioner Family; Visit Provider Nurse Practitioner Family
DX: Z11.4 Encounter for screening for human immunodeficiency virus [HIV] (principal); Z11.59 Encounter for screening for other viral diseases; M85.80 Other specified disorders of bone density and structure, unspecified site; E10.9 Type 1 diabetes mellitus without complications
CPT/HCPCS: 36415; 80048; 82306; 86704; 86706; 87340; 87389